=== PATIENT | female | born 1975 | race Caucasian/White ===

== ENCOUNTER → 2020-04-06 | Outpatient (CLI) | payer OTHER ==
[~2020-04-06] MED LIST: ATENOLOL50 MG PO; FERROUS SULFAT325 MG PO; FISH OIL 1,0001 EAC5 PO; FLUTICASONE SPRAY; GLIPIZIDE5 MG PO; HYDROCODON-ACE1 EAC4 PO; IBUPROFEN600 MG PO; IMITREX100 MG PO; LEXAPRO20 MG PO; LIPITOR20 MG PO; LISINOPRIL10 MG PO; NAPROXEN500 MG PO; NORTRIPTYLINE H25 MG PO; OMEPRAZOLE40 MG PO; ONDANSETRON HCL8 MG PO; TOPAMAX200 MG PO; ZOFRAN 4 MG TAB4 MG PO
[2020-04-06 11:15] LABS: HEMOGLOBIN 12.8 gm/dl (12.3-15.3); RED BLOOD COUNT 4.42 M/UL (4.00-5.10); WHITE BLOOD COUNT 7.9 K/UL (4.5-11.0)
[2020-04-06 11:33] LABS: BUN/CREATININE RATIO 17 (0-10)
== END ==
LOC: OPSV2 10:30
PROVIDERS: Obstetrics & Gynecology
DX: Z01.818 Encounter for other preprocedural examination (principal); N93.8 Other specified abnormal uterine and vaginal bleeding; R94.31 Abnormal electrocardiogram [ECG] [EKG]
CPT/HCPCS: 36415; 80048; 85025; 93005

== ENCOUNTER 2020-04-10 06:31 | Day surgery (SDC) | payer OTHER ==
[~2020-04-10] VITALS: Ht 167.6 cm; Wt 127.0 kg
[~2020-04-10 06:31] MED LIST changes: -HYDROCODON-ACE1 EAC4 PO; -IBUPROFEN600 MG PO; -ZOFRAN 4 MG TAB4 MG PO
[2020-04-10] MEDS ORDERED: ZOFRAN 4 MG TAB4 MG PO (11:47)
[2020-04-10] MEDS ORDERED: HYDROCODON-ACE1 EAC4 PO (11:47)
[2020-04-10] MEDS ORDERED: IBUPROFEN600 MG PO (11:47)
--- NOTE | 2020-04-10 19:20 | NUR ---
1800 DR BUENO NOTIFIED OF PRESCRIPTIONS BEING ESCRIPTED TO MEDICINE [facility], PHARMACY CLOSED, PT WANTS TO GO HOME STATES THAT SHE WILL ALTERNATE TYLENOL AND MOTRIN AND GET PRESCRIPTIONS IN THE MORNING DR BUENO OKAY WITH THAT
== END 2020-04-10 19:16 | disposition home or self-care (01) ==
LOC: OR 06:31 → M/S 12:36 → OR 19:16
PROVIDERS: Obstetrics & Gynecology
PROC: 0UT24ZZ Resection of Bilateral Ovaries, Percutaneous Endoscopic Approach (ICD-10-PCS; 2020-04-10)
PROC: 0UT74ZZ Resection of Bilateral Fallopian Tubes, Percutaneous Endoscopic Approach (ICD-10-PCS; 2020-04-10)
PROC: 0UT94ZZ Resection of Uterus, Percutaneous Endoscopic Approach (ICD-10-PCS; principal; 2020-04-10 08:00)
DX: N72 Inflammatory disease of cervix uteri (principal); N80.0 Endometriosis of uterus; D25.0 Submucous leiomyoma of uterus; N83.02 Follicular cyst of left ovary; N83.01 Follicular cyst of right ovary; N70.11 Chronic salpingitis; D64.9 Anemia, unspecified; I10 Essential (primary) hypertension; E11.9 Type 2 diabetes mellitus without complications; F41.9 Anxiety disorder, unspecified; F32.9 Major depressive disorder, single episode, unspecified; G43.909 Migraine, unspecified, not intractable, without status migrainosus; E78.5 Hyperlipidemia, unspecified; G47.30 Sleep apnea, unspecified; K21.9 Gastro-esophageal reflux disease without esophagitis; K76.0 Fatty (change of) liver, not elsewhere classified; F41.0 Panic disorder [episodic paroxysmal anxiety]; E66.01 Morbid (severe) obesity due to excess calories; Z68.42 Body mass index [BMI] 45.0-49.9, adult; Z88.1 Allergy status to other antibiotic agents; Z20.822 Contact with and (suspected) exposure to COVID-19; Z88.0 Allergy status to penicillin; Z79.84 Long term (current) use of oral hypoglycemic drugs; Z79.899 Other long term (current) drug therapy
CPT/HCPCS: 82962; C1769; J1100; J1170; J1580; J1644; J1885; J2001; J2250; J2370; J2405; J2704; J2710; J3010; J7030; J7120